=== PATIENT | female | born 1960 | race Caucasian/White ===

== ENCOUNTER → 2020-05-25 16:05 | Outpatient (CLI) | payer BC, SELFPAY ==
--- NOTE | ~2020-05-25 | MR_ITS ---
EXAMINATION: MR knee RT wo con DATE: 05/25/2020 17:00 INDICATION: Right knee pain. TECHNIQUE: Magnetic resonance imaging (MRI) of the right knee was performed without intravenous contr ast. Sequences included axial PD-weighted FS FSE, coronal PD-weighted FSE and PD-weighted FS FSE, sag ittal PD-weighted FSE, and sagittal T2-weighted FS FSE. COMPARISON: Right knee MRI 08/10/2015 FINDINGS: Medial compartment: Medial meniscus is normal. There is shallow partial-thickness cartilage loss of tibial condyle. There is shallow partial-thickness cartilage loss of femoral condyle, worst at the central articular surfa ce. Marginal osteophytes are noted. Lateral compartment: Lateral meniscus is normal. There is deep partial thickness cartilage loss of tibial condyle involvin g the posterior articular surface. Marginal osteophytes are noted. Patellofemoral compartment: There is full-thickness cartilage loss involving patellar medial facet and median ridge with cortical irregularity. There is deep partial thickness cartilage loss of patellar lateral facet. There is ful l-thickness cartilage loss of medial trochlea with mild subchondral edema-like marrow signal intensit y. There is partial-thickness cartilage loss of lateral trochlea. Marginal osteophytes are noted. Ligaments and tendons: The anterior and posterior cruciate ligaments are normal. There are changes of prior sprain of medial collateral ligament characterized increased signal intensity. There are changes of prior sprain of f ibular collateral ligament characterized by thickening and increased signal intensity proximally. The patellar tendon is normal. Fluid: There is a small knee joint effusion. There is a moderate-sized Alvarado's cyst. There is mild superfici al infrapatellar bursitis. IMPRESSION: 1. Severe chondrosis of patellofemoral compartment, moderate chondrosis of lateral compartment, and m ild chondrosis of medial compartment. 2. Small knee joint effusion. 3. Moderate-sized Alvarado's cyst. Reviewed, dictated and finalized at location A. IMPRESSION: 1. Severe chondrosis of patellofemoral compartment, moderate chondrosis of late ral compartment, and mild chondrosis of medial compartment. 2. Small knee joint effusion. 3. Moderate-sized Alvarado's cyst.
== END ==
DX: M25.561 Pain in right knee (principal); M25.461 Effusion, right knee
CPT/HCPCS: 73721

== ENCOUNTER → 2020-08-01 16:20 | Outpatient (CLI) | payer BC, SELFPAY ==
--- NOTE | ~2020-08-01 | XR_ITS ---
XR hand RT min 3V, XR hand LT min 3V 08/01/2020 18:51 Indication: Bilateral hand pain Procedure: 4 views each hand Comparison: No prior studies for comparison. Findings: There is ulnar negative variance. There is moderate polyarticular osteoarthritis of the wri sts and hands, most advanced in the first CMC joints bilaterally. No acute fracture or traumatic андрей lignment. No erosive changes. No foreign bodies. Impression: 1: Moderate-severe polyarticular osteoarthritis of the bilateral hands and wrists. Reviewed, dictated and finalized at location A. TY CLERK Impression: 1: Moderate-severe polyarticular osteoarthritis of the bilateral hands and wris ts. Impression: 1: Moderate-severe polyarticular osteoarthritis of the bilateral hands and wris ts.
== END ==
PROVIDERS: PCP Internal Medicine; Visit Provider Internal Medicine
DX: E78.5 Hyperlipidemia, unspecified (principal); Z79.899 Other long term (current) drug therapy; M19.031 Primary osteoarthritis, right wrist; M19.032 Primary osteoarthritis, left wrist; M19.041 Primary osteoarthritis, right hand; M19.042 Primary osteoarthritis, left hand
CPT/HCPCS: 73130

== ENCOUNTER → 2020-08-16 11:04 | Outpatient (CLI) | payer BC, SELFPAY ==
--- NOTE | ~2020-08-16 | MM_ITS ---
EXAMINATION: MM screening [facility] BI w john HISTORY: Screening mammogram, family history of breast cancer in her sister. TECHNIQUE: Craniocaudal and mediolateral oblique 3-D tomosynthesis images were obtained and synthetic 2-D images were generated. CAD analysis was submitted and interpreted. COMPARISON: 07/24/2019, 07/16/2018, 06/26/2017, 06/01/2016 BREAST PARENCHYMAL COMPOSITION: There are scattered areas of fibroglandular density. FINDINGS: Scattered benign-appearing calcifications are present. Again noted is a stable intramammary lymph node in the outer right breast. There is no evidence of suspicious mass, calcification, or arc hitectural distortion to suggest malignancy in either breast. There has been no suspicious interval c hange. IMPRESSION: 1. No mammographic evidence of malignancy. 2. Recommend routine screening mammography in one year. BI-RADS Category 2: Benign finding(s). Reviewed, dictated and finalized at location A. ER
== END ==
PROVIDERS: PCP Internal Medicine; Visit Provider Obstetrics & Gynecology
DX: Z12.31 Encounter for screening mammogram for malignant neoplasm of breast (principal)
CPT/HCPCS: 77063; 77067

== ENCOUNTER → 2021-07-18 09:46 | Outpatient (CLI) | payer BC, SELFPAY ==
--- NOTE | ~2021-07-18 | MMUS_ITS ---
EXAMINATION: MM diagnostic [facility] BI w john, US breast LT limited HISTORY: Probable left breast abnormality. TECHNIQUE: Additional 3-D tomosynthesis images of the breasts were performed and synthetic 2-D images were generated. CAD analysis was submitted and interpreted. High resolution Limited left breast ultr asound was performed. COMPARISON: Comparison to multiple prior studies sequentially, with oldest reviewed study dated 05/13. BREAST PARENCHYMAL COMPOSITION: The breasts are heterogenously dense, which may obscure small masses. FINDINGS: MAMMOGRAPHIC FINDINGS: There are no new masses, calcifications or architectural distortion in either breast to suggest saeed cash. ULTRASOUND: Limited left breast ultrasound: Normal heterogeneous echotexture without focal solid or cystic mass. IMPRESSION: 1. No evidence for malignancy in either breast. 2. Routine yearly screening mammogram and regular clinical breast examination are recommended. BI-RADS Category 1: Negative Reviewed, dictated and finalized at location A. ON PICTURE COMMENTATOR IMPRESSION: 1. No evidence for malignancy in either breast. 2. Routine yearly screening mammogram and regular clinical breast examination a re recommended. BI-RADS Category 1: Negative
== END ==
PROVIDERS: Visit Provider Obstetrics & Gynecology
DX: N64.4 Mastodynia (principal)
CPT/HCPCS: 76642; 77062; 77066; G0279

== ENCOUNTER → 2022-07-19 08:48 | Outpatient (CLI) | payer BC, SELFPAY ==
--- NOTE | ~2022-07-19 | DEXA_ITS ---
Bone Density Report Name: HALLIE CHOPRA Age: 61 Sex: Female Ethnicity: White Date of : 1960 Indication: postmenopausal; screening for osteoporosis; height loss; hysterectomy; Referring Provider: TRACY, TRISTIN Study: Bone densitometry was performed. Exam Date: July 19, 2022 Accession number: [id number] Bone Density: Region BMD T-score Z-score Classification AP Spine (L1, L2, L3) 0.868 -1.4 0.2 Osteopenia World Health Organization criteria for BMD impression classify patients as: Normal (T-score at or above -1.0), Osteopenia (T-score between -1.0 and -2.5), or Osteoporosis (T-score at or below -2.5). Previous Exams: Region Exam Age BMD T-score BMD Change BMD Change Date g/cm2 vs Baseline vs Previous AP Spine(L1, L2, L3) 07/19/2022 61 0.868 -1.4 -0.166* -0.075* 07/31/2018 57 0.944 -0.7 -0.091* -0.091* 12/06/2010 50 1.035 0.2 *Denotes significance at 95% confidence level, LSC for AP Spine = 0.022 g/cm2 Clinical Information Provided by Patient: Has used the following medications: Vitamin D, Calcium, MTV Has the following medical conditions: Hysterectomy Patient maximum height was 67.75 Menopause Age: 50 Drinks caffeinated beverages Onset of menses at age 14 Number of children 2 Impression: The patient has low bone mass, based on the Total Spine T-score. The BMD for the AP Spine(L1, L2, L3) decreased, changing by -0.075 since the last DXA exam. Discussion: BONE DENSITY IS LOW AT ONE OR MORE SKELETAL SITES. This patient's lowest T-score is low at one or more skeletal sites. It meets the World Health Organization's (WHO) criteria for ?low bone mass? (T-score between -1.0 and -2.5). The patient's 10-year risk of fracture as calculated by FRAX is less than the threshold where pharmacological therapy is recommended by the National Osteoporosis Foundation (NOF). However, all treatment decisions require clinical judgment and consideration of individual patient factors, including patient preferences, comorbidities, previous drug use, risk factors not captured in the FRAX model (e.g., frailty, falls, vitamin D deficiency, increased bone turnover, interval significant decline in bone density) and possible under or overestimation of fracture risk by FRAX. The patient should follow a healthful lifestyle (good nutrition with adequate calcium and vitamin D, and appropriate weight-bearing exercise). Follow-Up: Consider repeating this study in 2 years to reassess this patient's status, or sooner if there is some new clinical indication. Reported by: [facility] on 07/19/2022 9:48:00 AM. Reviewed, dictated and finalized at location APriti FOLEY
--- NOTE | ~2022-07-19 | MMUS_ITS ---
EXAMINATION: MM diagnostic [facility] BI w john, US breast LT limited HISTORY: Periareolar pain of the left breast TECHNIQUE: Craniocaudal, mediolateral, and mediolateral oblique 3-D tomosynthesis images of the nolvia ts were performed and synthetic 2-D images were generated. CAD analysis was submitted and interpreted . High resolution limited left breast ultrasound was performed. COMPARISON: 07/18/2021, 08/16/2020, 07/24/2019, 07/16/2018 BREAST PARENCHYMAL COMPOSITION: There are scattered areas of fibroglandular density. FINDINGS: MAMMOGRAPHIC FINDINGS: No suspicious mass, calcification, or architectural distortion are identified in either breast to sug gest malignancy. There has been no suspicious interval change. No mammographic correlate is identifie d for the patient's reported left breast pain. A stable intramammary lymph node is noted in the right breast. ULTRASOUND: There is no evidence of focal abnormal solid or cystic mass in the vicinity of the patient's reported left breast pain. IMPRESSION: 1. No specific mammographic or sonographic correlate is identified for the patient's reported left br east pain. Further evaluation at this time should be based on clinical assessment. Continued follow-u p physical examination is recommended. 2. Recommend routine screening mammography in one year. BI-RADS Category 2: Benign finding(s). Reviewed, dictated and finalized at location A. GER E COMMERCE IMPRESSION: 1. No specific mammographic or sonographic correlate is identified for the yakov ent's reported left breast pain. Further evaluation at this time should be base d on clinical assessment. Continued follow-up physical examination is recommend ed. 2. Recommend routine screening mammography in one year. BI-RADS Category 2: Benign finding(s).
== END ==
PROVIDERS: PCP Internal Medicine; Visit Provider Nurse Practitioner
DX: N64.4 Mastodynia (principal); Z78.0 Asymptomatic menopausal state
CPT/HCPCS: 76642; 77062; 77066; 77080; G0279

== ENCOUNTER → 2023-03-06 12:07 | Outpatient (CLI) | payer BC, SELFPAY ==
--- NOTE | ~2023-03-06 | XR_ITS ---
Right Shoulder Technique: AP and axillary views were obtained. Clinical History: Pain Findings: No fracture or dislocation is seen. Osseous alignment is anatomic. Small inferomedial humer al head osteophyte present. There is glenohumeral joint space narrowing. AC joint is intact. Soft tis sues are unremarkable. Impression: Moderate degenerative change of the glenohumeral joint. Reviewed, dictated and finalized at location . Impression: Moderate degenerative change of the glenohumeral joint.
== END ==
PROVIDERS: PCP Nurse Practitioner Family; Visit Provider Nurse Practitioner Family
DX: M19.011 Primary osteoarthritis, right shoulder (principal)
CPT/HCPCS: 73030

== ENCOUNTER → 2023-10-09 13:16 | Outpatient (CLI) | payer BC, SELFPAY ==
--- NOTE | ~2023-10-09 | MM_ITS ---
EXAMINATION: MM screening [facility] BI w john HISTORY: Screening TECHNIQUE: Craniocaudal and mediolateral oblique 3-D tomosynthesis images were obtained and synthetic 2-D images were generated. CAD analysis was submitted and interpreted. COMPARISON: Comparison to multiple prior studies sequentially, with oldest reviewed study dated 06/12. BREAST PARENCHYMAL COMPOSITION: Not dense: There are scattered areas of fibroglandular density. FINDINGS: There is no evidence of suspicious mass, calcification, or architectural distortion to sugg est malignancy in either breast. There has been no suspicious interval change. IMPRESSION: 1. No mammographic evidence of malignancy. 2. Recommend routine screening mammography in one year. BI-RADS Category 1: Negative Reviewed, dictated and finalized at location A. ESS WORKER
== END ==
PROVIDERS: PCP Nurse Practitioner; Visit Provider Nurse Practitioner
DX: Z12.31 Encounter for screening mammogram for malignant neoplasm of breast (principal)
CPT/HCPCS: 77063; 77067

== ENCOUNTER 2024-06-08 16:53 | Emergency (ER) | payer BC, SELFPAY ==
[2024-06-08 17:30] VITALS: BP 156/85; PULSE 71; RESP 18; TEMP 36.3; O2SAT 100
[2024-06-08 17:55] LABS: EDUAAPPEAR Clear; EDUABILI Negative (Negative); EDUABLOOD Negative (Negative); EDUACOLOR1 Light/Pale; EDUAGLUCOSE Negative (Negative); EDUAKETONE Negative (Negative); EDUALEUKO Negative (Negative); EDUANITRATE Negative (Negative); EDUAPH 6.5; EDUAPROTEIN Negative (Negative); EDUAUROBILI 0.2
--- NOTE | 2024-06-08 18:33 | ED_ITS ---
HPI - Female Genitourinary General Chief complaint: Urogenital-Female Stated complaint: Possible UTI Time Seen by Provider: 06/08/24 18:11 Source: patient and RN notes reviewed Mode of arrival: ambulatory Limitations: no limitations History of Present Illness HPI Narrative: Patient presents today with a one-week history of, ?lower abdominal pulling? that has been worse over the past 2 days with some mild dysuria and urinary frequency. She continues to eat and drink well. Denies fever, nausea or vomiting. She is going out of town tomorrow and wanted to make sure she did not have a UTI. States she has had symptoms similar to this in the past and tested negative for UTI. Her doctor told her to take some azo and symptoms subsequently resolved. Related Data Home Medications Medication Instructions Recorded Confirmed cetirizine 10 mg capsule (Zyrtec) 10 mg PO DAILY 07/22/19 06/08/24 calcium 300 mg-D3 20 mcg-magnesium 1 tablet PO DAILY 03/14/21 06/08/24 25 mg-coppr 0.5 [id number] tablet (Caltrate-D3 Plus Minerals) multivitamin (Daily Multi-Vitamin 1 tablet PO DAILY 03/14/21 06/08/24 tablet) vitamin B complex-folic acid 1 1 tablet PO DAILY 08/29/22 06/08/24 mg-vit C 100 mg-biotin 300 mcg tablet Allergies Allergy/AdvReac Type Severity Reaction Status Date / Time No Known Allergies Allergy Verified 06/08/24 17:56 Review of Systems Review of Systems: CONSTITUTIONAL: Denies body aches, fever, chills, or sweats. EYES: Denies visual changes, redness, or discharge. ENT: Denies rhinorrhea, congestion, sore throat, or otalgia. CARDIOVASCULAR: Denies chest pain, palpitations, or edema. RESPIRATORY: Denies cough or dyspnea. GASTROINTESTINAL: Denies abdominal pain, nausea, vomiting, or diarrhea. GENITOURINARY: + dysuria, frequency, lower abdominal discomfort SKIN: Denies rash, itching, or wounds. MUSCULOSKELETAL: Denies back pain, joint pain, or myalgia. NEUROLOGIC: Denies headache, numbness, tingling, or weakness. PSYCH: Denies depression or anxiety. [facility] Past Medical History Medical History Hypothyroidism, unspecified Osteoarthritis Surgical History Surgical History H/O: hysterectomy 12/2014 History of hip surgery Right 2020 Left 2016 Family History Family History Father Acute myocardial infarction, Onset Age: 71 Hypertension Family history of elevated blood lipids Mother Family history of obesity Hypertension Cerebrovascular accident Family history of diabetes mellitus in first degree relative Acute myocardial infarction, Onset Age: 60 Sibling Patient's sister is in good health Patient's brother is in good health Other Diabetes mellitus Family history of allergic disorder Family history of cardiovascular disease Family history of malignant neoplasm of male breast Social History Social History Smoking packs per day: 0.5 Smoking cigarettes per day: 10.0 Years smoked: 9 Smoking pack-years: 4.50 Smoking status: Former smoker Tobacco type: cigarettes Second hand tobacco smoke exposure: Yes Smoking end date: 08/12/89 Alcohol intake: current Drinks per week: 12 Substance use: never Substance use type: does not use Do You Feel Safe in your Home?: Yes Lack of Transportation: No Lack of Food: Never True Current Housing: I Have Housing Concerned About Future Housing: No Difficulty Paying Gas/Electric Bills: No Difficulty Paying for Meds: No Currently Unemployed: No Education: High School Diploma/GED Difficulty w/ Childcare or Family Care: No Living arrangements: with family Occupation/Education: retired Gender identity (if verbalized by the patient): Female Sexual Orientation (if Verbalized by the Patient): Straight or Heterosexual Spiritual care concerns: No Agree to blood products: Yes Comments At time of signature, I have reviewed and agree with nursing past medical, surgical, social and family history unless otherwise noted. Please see nursing chart for further information. There is no relevant family history pertinent to the presenting complaint Exam Narrative: GENERAL: Well-appearing, well-nourished, and in no acute distress. HEAD: Normocephalic, atraumatic. EYES: EOMI. No redness or drainage. Conjunctivae normal. ENT: Mucous membranes pink and moist. NECK: Normal AROM. CHEST: No respiratory distress. Clear to auscultation. HEART: Regular rate and rhythm. No murmur appreciated. ABDOMEN: Soft, nontender, nondistended, normal active bowel sounds. EXTREMITIES: Normal range of motion. No edema. SKIN: Warm, dry, no rash. Capillary refill normal. NEURO: No focal deficits. Alert and oriented x3. Gait steady. PSYCH: Normal affect. No signs of depression or anxiety. Course Course Level of Care: Express Care Visit Vital Signs Vital signs: Vital Signs Temperature 97.3 F L 06/08/24 17:30 Pulse Rate 71 06/08/24 17:30 Respiratory Rate 18 06/08/24 17:30 Blood Pressure 156/85 H 06/08/24 17:30 Pulse Oximetry 100 06/08/24 17:30 Oxygen Delivery Room Air 06/08/24 17:30 Temperature 97.3 F L 06/08/24 17:30 Pulse Rate 71 06/08/24 17:30 Respiratory Rate 18 06/08/24 17:30 Blood Pressure 156/85 H 06/08/24 17:30 Pulse Oximetry 100 06/08/24 17:30 Oxygen Delivery Room Air 06/08/24 17:30 Reviewed MDM - Female Genitourinary MDM Narrative Medical decision making narrative: With urinalysis is not consistent with UTI. Culture pending. Discussed [id number]-[id number] medication use. No prescription medications indicated at this time. Anticipatory guidance given. ED precautions given. Differential Diagnosis Differential diagnosis: Likely urinary tract infection, vaginitis and cystitis Lab Data Attestation: I reviewed the patient's lab results. Labs: Lab Results 06/08/24 Range/Units 17:52 POC Urine Color Light/pale POC Urine Clarity Clear POC Urine pH 6.5 POC Ur Specif [place] 1.010 POC Urine Protein Negative (Negative) POC Ur Glucose (UA) Negative (Negative) POC Urine Ketones Negative (Negative) POC Urine Blood Negative (Negative) POC Urine Nitrite Negative (Negative) POC Urine Bilirubin Negative (Negative) POC Urine Urobilinogen 0.2 POC U Leukocyte Esteras Negative (Negative) Critical Care Time Critical Care Time Critical Care Time: No Discharge Plan Discharge Clinical Impression: Dysuria, Frequency of urination Patient Disposition: Home, Self-Care Condition: Stable Additional Instructions: Your urine test is negative for infection today. You will be notified by phone if your culture comes back positive for infection, and appropriate antibiotics will be called in for you at that time. Drink plenty of water. If symptoms persist, please follow-up with your PCP. If symptoms worsen to include fever, back pain, sweats or chills, nausea or vomiting, please go to the nearest emergency room. Your blood pressure was elevated above 120/80 today at Urgent Care. This puts you above the threshold for follow up. Please schedule a followup visit with your personal physician as soon as possible, for further evaluation and treatment. Even blood pressure exceeding 120/80 may indicate pre-hypertension. Prescriptions: No Action Zyrtec 10 mg capsule 10 mg PO DAILY cholecalciferol (vitamin D3) 25 mcg (1,000 unit) tablet 25 mcg PO DAILY Qty: 30 0RF multivitamin [Daily Multi-Vitamin] Tablet 1 tablet PO DAILY Caltrate-D3 Plus Minerals 300 mg-800 unit -25 mg-0.5 mg tablet 1 tablet PO DAILY vit B complx-folic ac-C-biotin 1 mg-100 mg- 300 mcg tablet 1 tablet PO DAILY atorvastatin 40 mg tablet 40 mg PO DAILY Qty: 90 1RF bupropion HCl 300 mg tablet extended release 24 hr 300 mg PO QAM Qty: 90 1RF levothyroxine [Levoxyl] 88 mcg tablet 88 mcg PO DAILY Qty: 90 1RF alprazolam [Xanax] 0.5 mg tablet 0.5 mg PO DAILY PRN (Reason: anxiety) Qty: 90 0RF Follow-up/Referrals: Kathrin Carrion APRN [Primary Care Provider] - Time of Disposition: 18:19
== END 2024-06-08 18:21 | disposition home or self-care (01) ==
PROVIDERS: Emergency Provider Nurse Practitioner; PCP Nurse Practitioner Family
DX: R30.0 Dysuria (principal); R35.0 Frequency of micturition; Z87.891 Personal history of nicotine dependence; E03.9 Hypothyroidism, unspecified; M19.90 Unspecified osteoarthritis, unspecified site
CPT/HCPCS: 81003; 99212; G0463

== ENCOUNTER 2024-09-15 11:48 | Outpatient (CLI) | payer BC, SELFPAY ==
--- NOTE | ~2024-09-15 | DEXA_ITS ---
Bone Density Report Name: HALLIE CHOPRA Age: 64 Sex: Female Ethnicity: White Date of : 1960 Indication: postmenopausal; screening for osteoporosis; prior fracture; hysterectomy; Referring Provider: KASSY, TYLER Study: Bone densitometry was performed. Exam Date: September 15, 2024 Accession number: [id number] Bone Density: Region BMD T-score Z-score Classification AP Spine(L1-L4) 0.917 -1.2 0.5 Osteopenia World Health Organization criteria for BMD impression classify patients as: Normal (T-score at or above -1.0), Osteopenia (T-score between -1.0 and -2.5), or Osteoporosis (T-score at or below -2.5). Clinical Information Provided by Patient: Have had a previous hip or vertebral fracture Has had a low trauma fracture Has the following medical conditions: Hysterectomy Patient maximum height was 67.5 Menopause Age: 54 No regular weight bearing exercise Drinks caffeinated beverages Onset of menses at age 14 Number of children 2 Impression: The patient has low bone mass, based on the Total Spine T-score. The patient has risk factors, including: previous fracture. Discussion: INCREASED RISK OF FRACTURE DUE TO HISTORY OF FRACTURE. The patient's previous fracture puts the patient at high risk of a future fracture. In untreated patients, the risk of osteoporotic fracture increases approximately two-fold for each 1.0 SD decrease in T-score. Low bone density is not the only risk factor for fracture; also consider factors such as patient's age, frailty or poor health, risk of falling, risk of injury, previous osteoporotic fracture, family history of osteoporosis, cigarette smoking, low body weight, etc. Not everyone with a low trauma fracture has osteoporosis; osteomalacia and other metabolic bone disorders should also be considered. Patients who have osteoporosis should be evaluated for specific diseases and conditions (secondary causes) that may cause or contribute to bone loss and fracture risk. National Osteoporosis Foundation (NOF) recommends pharmacologic intervention for patients with a prior hip or vertebral fracture regardless of BMD T-score. The patient should follow a healthful lifestyle (good nutrition with adequate calcium and vitamin D, and appropriate weight-bearing exercise). Follow-Up: Consider a repeat BMD and Vertebral Fracture Assessment (VFA) exam in 2 years or sooner if medically necessary, to reassess this patient's status. Reported by: JEFF on 09/15/2024 1:16:00 PM. Reviewed, dictated and finalized at location [facility] FOLEY
--- OUTSIDE RECORDS SUMMARY | 2024-09-15 12:12 | XMS_ITS | Clinical Summary ---
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
--- OUTSIDE RECORDS SUMMARY | 2024-09-15 12:13 | XMS_ITS | Referral Summary ---
Author Organization [facility] [address] Address [address] [place] [address] Phone Care Team Providers Care Dieing Out Machine Operator Name Role Phone Naveed Marion DO Primary Care Provider [phone] Allergies No known active allergies Medications buPROPion XL (WELLBUTRIN XL) 300 mg 24 hr tablet take 1 tablet by oral route every day 0 0 05/17/2016 Active levothyroxine (SYNTHROID, LEVOTHROID) 88 mcg tablet take 1 tablet by oral route every day 0 0 05/17/2016 Active b complex vitamins (B COMPLEX 1) tablet Take 1 tablet by mouth daily Active atorvastatin (LIPITOR) 20 mg tablet Take 1 tablet (20 mg total) by mouth nightly Active calcium carbonate-vitam in D3 (CALTRATE 600 + D) 1500 mg (600 mg elemental) -400 units per tablet Take 1 tablet by mouth daily Active cyanocobalamin (Vitamin B-12) 1,000 mcg tabletIndicatio ns:Prevention of Vitamin B12 Deficiency Take 1 tablet (1,000 mcg total) by mouth daily Active ALPRAZolam (XANAX) 0.5 mg tablet Take 1 tablet (0.5 mg total) by mouth nightly as needed for anxiety Active multivitamin capsule Take 1 capsule by mouth daily Active ascorbic acid/collagen hydr (COLLAGEN PLUS VITAMIN C ORAL) Take 1 Scoop by mouth daily Active albuterol HFA (PROVENTIL HFA,VENTOLIN HFA,PROAIR HFA) 90 mcg/actuation inhaler Inhale 2 puffs every 6 (six) hours as needed for wheezing Active cetirizine (ZyrTEC) 10 mg tablet Take 1 tablet (10 mg total) by mouth daily Active acetaminophen 500 mg capsuleIndicati ons:Pain Take 1 capsule (500 mg total) by mouth every 6 (six) hours 0 04/05/2021 Active Active Problems Problem Noted Date Diagnosed Date Rotator cuff tear arthropathy of right shoulder 06/01/2024 Right shoulder pain 06/01/2024 Primary osteoarthritis of right hip 02/06/2021 Overview (02/06/2021): Added automatically from request for surgery 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 therapy 1 09/16/2015 Arthralgia of hip 06/12/2016 Osteoarthritis Migraine Hypothyroidism Hypertension Hyperlipidemia GERD (gastroesophageal reflux disease) Depression Anxiety Resolved Problems Problem Noted Date Diagnosed Date Resolved Date Osteoarthritis of right hip 04/03/2021 Immunizations Name Administration Dates Next Due Influenza, Quadrivalent, Amanda l Culture-based MDCK, Preservative Free, Antibiotic Free, Intramuscular 05/20/2020,05/20/2019,05/01/2018,05/21 Influenza, Quadrivalent, Spl it, Preservative Free, Intramuscular 04/26/2016,06/14/2015 Influenza, Trivalent, IM (MDV) 05/04/2013 Pfizer SARS-CoV-2 Monovalent Vaccination (12+ Yrs) PURPLE 12/01/2020,11/10/2020 ZOSTER Recombinant 05/01/2018,01/13/2018 Social History Tobacco Use Types Packs/Day Years Used Date Smoking Tobacco: Former Cigarettes 0.3 12.5 0 10/11/1975 - 04/12/1988 Smokeless Tobacco: Never Tobacco Cessation:Counseling Given: Not Answered Comments:I had quit in 1979 but began again in 1986. I was never a big smoker. Alcohol Use Standard Drinks/Week Comments Yes 0 (1 standard drink = 0.6 oz pur e alcohol) AUDIT-C Answer Date Recorded Q1: How often do you have a drink containing alc ohol? 2-4 times a month 04/04/2021 Q2: How many drinks containi ng alcohol do you have on a typical day when you are drinking? 3 or 4 04/04/2021 Q3: How often do you have si x or more drinks on one occasion? 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 Not on file Not on file Last Filed Vital Signs Vital Sign Reading Time Taken Comments Blood Pressure 119/74 04/05/2021 12:03 PM CDT Pulse 69 04/05/2021 12:03 PM CDT Temperature 36.6 ??C (97.9 ??F) 04/05/2021 12:03 PM C DT Respiratory Rate 16 04/05/2021 12:03 PM CDT Oxygen Saturation 100% 04/05/2021 12:03 PM CDT Inhaled Oxygen Concentration - - Weight 74.8 kg (165 lb) 06/01/2024 2:22 PM CDT Height 170.2 cm (5' 7 ) 06/01/2024 2:22 PM CDT Body Mass Index 25.84 06/01/2024 2:22 PM CDT Plan of Treatment Not on file Medical Devices Implanted Type Area Report Checker Device Identifier Shelf Expiration Date Model / Serial / Lot Stern & Nephew/Richco/ Ortho [id number] 52mm 3 Hole Hip Standard Shell Acetabular Poly - [id number] Implanted:Qty: 1 on 04/04/2021 by Donta Salas MD at [facility] Right: Hip Stern [employer] Nephew/Richco/Or tho [id number] 02/27/2031 [id number] / / [id number] Stern [employer] Nephew/Richco/ Ortho [id number] Reflection 6.5mm 25mm Hip Acetabular Cancellous [place] Full - [id number] Implanted:Qty: 1 on 04/04/2021 by Donta Salas MD at [facility] Right: Hip Stern [employer] Nephew/Richco/Or tho [id number] 02/18/2029 [id number] / / [id number] Stern [employer] Nephew/Richco/ Ortho [id number] R3 52mm 36mm Flexible Locking Tab Hip 0d Liner Acetabular Xlpe - [id number] Implanted:Qty: 1 on 04/04/2021 by Donta Salas MD at [facility] Right: Hip Stern [employer] Nephew/Richco/Or tho 10/25/2030 [id number] / / [id number] Stern & Nephew/Richco/ Ortho [id number] Polarstem Collar Cementless Hip 1 Standard Stem Femoral Titanium - [id number] Implanted:Qty: 1 on 04/04/2021 by Donta Salas MD at [facility] Right: Hip Stern [employer] Nephew/Richco/Or tho 10/06/2027 [id number] / / [id number] Stern [employer] Nephew/Richco/ Ortho [id number] 32mm Hip +8mm 07/25 Large Head Femoral Biolox Delta - [id number] Implanted:Qty: 1 on 04/04/2021 by Donta Salas MD at [facility] Right: Hip Stern [employer] Nephew/Richco/Or tho 01/24/2031 [id number] / / [id number] Insurance [facility] CHOICE [place]PO [place] Advance Directives For more information, please contact: [phone] Documents on File Type Date Recorded Patient Strapping Machine Operator Expl anation Power of Lump Maker 04/10/2021 8:50 AM Power of Lump Maker 04/04/2021 6:12 AM * Full Code (Latest Code Status on File) Date Activated Date Inactivated Comments 04/04/2021 4:57 PM 04/05/2021 5:28 PM Care Teams Dieing Out Machine Operator Relationship Specialty Start Date End Date Naveed Marion DO PCP - General Internal Medicine 02/06/21
--- OUTSIDE RECORDS SUMMARY | 2024-09-15 12:13 | XMS_ITS | Clinical Summary ---
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 therapy 1 09/16/2015 [...] (12+ Yrs) PURPLE 12/01/2020,11/10/2020 ZOSTER Recombinant 05/01/2018,01/13/2018 Surgical History Surgery Date Site/Laterality Comments TONSILLECTOMY 08/12/1978 - 1979 TUBAL LIGATION 08/12/2000 - 2001 BUNIONECTOMY 08/12/2005 - 2006 COMBINED HYSTEROSCOPY DIAGNOSTIC / D&C 08/12/2007 - 2008 for menorrhagia TOTAL ABDOMINAL HYSTERECTOMY 08/12/2014 - 2015 with BS, for menorrhagia and fibroids TOTAL HIP ARTHROPLASTY 08/12/2015 - 2016 Left JOINT REPLACEMENT 2015 & 2020 Medical History Medical History Date Comments Osteoarthritis Hypothyroidism Depression Hyperlipidemia Hypertension Anxiety Migraine GERD (gastroesophageal reflux disease) Osteoarthritis of right hip Family History Medical History Relation Name Comments Obesity Brother Diaz Atrial fibrillation Father Shayne Heart attack Father Shayne Breast cancer Father's Sister Heart attack Maternal Grandfather Shubham Diabetes Mother Mylene Heart attack Mother Mylene Heart disease Mother Mylene COD Hypertension Mother Mylene Obesity Mother Mylene Stroke Mother Mylene Vision loss Mother Mylene Asthma Sister 1 Liv Breast cancer Sister 1 Liv Cancer Sister 2 Matilda Relation Name Status Comments Brother Diaz Bella Father's Sister Maternal Grandfather Shubham Mother Mylene Sister 1 Liv Sister 2 Matilda Social History Tobacco Use Types Packs/Day Years [...] on file Legal 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 Gender Identity Female 05/12/2020 2:15 PM CDT Sexual Orientation Straight 05/12/2020 2: 15 PM CDT 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 Not on file Not on file Obstetrics History Para Term AB IAB SAB Ectopic Multiple Livin g Live Births 2 2 2 0 0 0 0 0 0 2 2 Date Outcome GA Total Labor Labor/2nd/3rd Weight Sex Type Anes PTL Marianela A1 A5 Name Clin Term Term Last Filed Vital Signs Vital Sign Reading [...] 06/01/2024 2:22 PM CDT Plan of Treatment Health Maintenance Due Date Last Done Comments Breast Cancer Screening-Mammogram 1960 Colon Cancer Screening-Colonoscopy 1960 Depression Screening 1960 Hepatitis C Screening 1960 DTaP/Tdap/Td Vaccine (1 - Tdap) 1971 Hepatitis B Screening 1978 Regular Well Visit/Exam 18-64 07/29/2019 07/29/2018, 07/22/2017 Covid-19 Vaccine ( season) 2024 12/01/2020, 11/10/2020 Zoster Vaccine Completed 05/01/2018, 01/13/2018 Influenza Vaccine Completed 05/29/2024, , 05/20/2019, Additional history exists Pneumococcal vaccine <65 Aged Out No longer eligible based on patient's age to complete this topic Medical Devices Implanted Type Area Growth Media Mixer Mushroom Device Identifier Shelf Expiration Date Model / Serial / Lot Stern & Nephew/Richco/ Ortho [id number] 52mm 3 Hole Hip Standard Shell Acetabular Poly - [id number] Implanted:Qty: 1 on 04/04/2021 by Donta Salas MD at [facility] Right: Hip [employer] Nephew/Richco/Or tho [id number] 02/27/2031 [id number] / / [id number] Stern [employer] Nephew/Richco/ Ortho [id number] Reflection 6.5mm 25mm Hip Acetabular Cancellous [place] Full - [id number] Implanted:Qty: 1 on 04/04/2021 by Donta Salas MD at [facility] Right: Hip [employer] Nephew/Richco/Or tho [id number] 02/18/2029 [id number] / / [id number] Stern [employer] Nephew/Richco/ Ortho [id number] R3 52mm 36mm Flexible Locking Tab Hip 0d Liner Acetabular Xlpe - [id number] Implanted:Qty: 1 on 04/04/2021 by Donta Salas MD at [facility] Right: Hip Stern [employer] Nephew/Richco/Or tho 10/25/2030 [id number] / / [id number] Stern & Nephew/Richco/ Ortho [id number] Polarstem Collar Cementless Hip 1 Standard Stem Femoral Titanium - [id number] Implanted:Qty: 1 on 04/04/2021 by Donta Salas MD at [facility] Right: Hip Stern [employer] Nephew/Richco/Or tho 10/06/2027 [id number] / / [id number] Stern & Nephew/Richco/ Ortho [id number] 32mm Hip +8mm 07/25 Large Head Femoral Biolox Delta - [id number] Implanted:Qty: 1 on 04/04/2021 by Donta Salas MD at [facility] Right: Hip Stern & Nephew/Richco/Or tho 01/24/2031 [id number] / / [id number] Insurance [facility] CHOICE [facility] [place]PO [place] CHO[place] Advance Directives For more information, please contact: [phone] Documents on File Type Date Recorded Patient Mannequin Sander And Finisher Expl anation Power of Rubber Thread Spooler 04/10/2021 8:50 AM Power of Rubber Thread Spooler 04/04/2021 6:12 AM * Full Code (Latest Code Status on File) Date Activated Date Inactivated Comments 04/04/2021 4:57 PM 04/05/2021 5:28 PM Care Teams Starch Crab Relationship Specialty Start Date End Date Naveed Marion DO PCP - General Internal Medicine 02/06/21
--- OUTSIDE RECORDS SUMMARY | 2024-09-15 12:13 | XMS_ITS | Clinical Summary ---
Author Organization [facility] Address [address] [place] [address]. [place], [place] [id number] [place] [address] Care Team Providers Care Service Center Manager Name Role Phone Unavailable Primary Care Provider Unavailabl e Social History Tobacco Use Types Packs/Day Years Used Date Smoking Tobacco: Never Assessed Comments Unknown Sex and Gender Information Value Date Recorded Sex Assigned at Not on file Legal Sex Female 7:11 PM CDT Gender Identity Not on file Sexual Orientation Not on file Plan of Treatment Health Maintenance Due Date Last Done Comments Cervical Cancer Screening Pa p Smear (Age 30 to 64) Every 3 Years 1960 Colorectal Cancer Screening Colonoscopy (10 Years) 1960 Annual Physical 1963 Hepatitis C 1978 DTaP, Tdap and Td Vaccines ( 1 - Tdap) 1979 Cervical Cancer Screening Pa p with HPV Testing (Age 30 to 64) Every 5 Years 1990 Cervical Cancer Screening with HPV 1990 Mammogram Screening 2000 Zoster Vaccines (1 of 2) 2010 COVID-19 Vaccine (2023-2 5 season) 2024 Influenza Adult (#1) 2024 RSV Immunization or 60+ Years (1 - 1-dose 75+ series) 2035 Meningococcal B Vaccine Aged Out No l onger eligible based on patient's age to complete this topic Meningococcal Vaccine Aged Out No priscilla miles eligible based on patient's age to complete this topic Pneumococcal Vaccine: Pediat rics (0 to 5 Years) and At-Risk Patients (6 to 64 Years) Aged Out No longer eligible b ased on patient's age to complete this topic RSV Immunizations Under 20 Months Aged Out No longer eligible based on patient's age to complete this topic
== END 2024-09-15 11:49 | disposition home or self-care (01) ==
PROVIDERS: PCP Nurse Practitioner Family; Visit Provider Nurse Practitioner Women's Health
DX: M85.88 Other specified disorders of bone density and structure, other site (principal); Z78.0 Asymptomatic menopausal state; Z13.820 Encounter for screening for osteoporosis
CPT/HCPCS: 77080

== ENCOUNTER 2024-10-10 09:47 | Outpatient (CLI) | payer BC, SELFPAY | END 2024-10-10 09:48 | disposition home or self-care (01) | LOC: MICIMG 09:48 | PROVIDERS: PCP Nurse Practitioner Family; Visit Provider Nurse Practitioner Women's Health | DX: Z12.31 Encounter for screening mammogram for malignant neoplasm of breast (principal); Z80.3 Family history of malignant neoplasm of breast | CPT/HCPCS: 77063; 77067 ==

== ENCOUNTER 2024-12-04 09:45 | Outpatient (CLI) | payer BC, SELFPAY ==
--- OUTSIDE RECORDS SUMMARY | 2024-12-04 09:58 | XMS_ITS | Referral Summary ---
Author Organization [facility] [address] Address [address] [employer] [place] [address] Phone Care Team Providers Care Medical Technologist Microbiology Name Role Phone Naveed Marion DO Primary Care Provider [phone] Allergies No known active allergies Medications buPROPion [...] (02/06/2021): Added automatically from request for surgery [id number] shelter current use of anticoagulant therapy 1 09/16/2015 Arthralgia of hip 06/12/2016 Osteoarthritis Migraine Hypothyroidism Hypertension Hyperlipidemia GERD (gastroesophageal reflux disease) Depression Anxiety Resolved Problems Problem Noted Date Diagnosed Date Resolved Date Osteoarthritis of right hip 04/03/2021 Immunizations Immunization Administration Dates Next Due Influenza, Quadrivalent, Amanda [...] on file 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 Gender Identity Female 05/12/2020 2:15 PM CDT Sexual Orientation Straight 05/12/2020 2: 15 PM CDT 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 Not on file Not on file Last Filed Vital Signs Vital Sign Reading Time Taken Comments Blood Pressure 119/74 04/05/2021 12:03 PM CDT Pulse 69 04/05/2021 12:03 PM CDT Temperature 36.6 C (97.9 F) 04/05/2021 12:03 PM CDT Respiratory Rate 16 04/05/2021 12:03 PM CDT Oxygen Saturation 100% 04/05/2021 12:03 PM CDT Inhaled Oxygen Concentration - - Weight 74.8 kg (165 lb) 06/01/2024 2:22 PM CDT Height 170.2 cm (5' 7 ) 06/01/2024 2:22 PM CDT Body Mass Index 25.84 06/01/2024 2:22 PM CDT Plan of Treatment Not on file Medical Devices Implanted Type Area Electric Well Logging Operator Device Identifier Shelf Expiration Date Model / Serial / Lot Stern & Nephew/Richco/ Ortho [id number] [id number] 52mm 3 Hole Hip Standard Shell Acetabular Poly - [id number] Implanted:Qty: 1 on 04/04/2021 by Donta Salas MD at [facility] Right: Hip Stern [employer] Nephew/Richco/Or tho [id number] 02/27/2031 [id number] / / [id number] Stern [employer] Nephew/Richco/ Ortho [id number] Reflection 6.5mm 25mm Hip Acetabular Cancellous [place] Full - [id number] Implanted:Qty: 1 on 04/04/2021 by Donta Salas MD at [facility] Right: Hip Stern [employer] Nephew/Richco/Or tho [id number] 02/18/2029 [id number] / / [id number] Stern [employer] Nephew/Richco/ Ortho [id number] R3 52mm 36mm Flexible Locking Tab Hip 0d Liner Acetabular Xlpe - [id number] Implanted:Qty: 1 on 04/04/2021 by Donta Salas MD at [facility] Right: Hip Stern [employer] Nephew/Richco/Or tho 10/25/2030 [id number] / / [id number] Stern [employer] Nephew/Richco/ Ortho [id number] Polarstem Collar Cementless Hip 1 Standard Stem Femoral Titanium - [id number] Implanted:Qty: 1 on 04/04/2021 by Donta Salas MD at [facility] Right: Hip Stern [employer] Nephew/Richco/Or tho 10/06/2027 [id number] / / [id number] Stern [employer] Nephew/Richco/ Ortho [id number] 32mm Hip +8mm 07/25 Large Head Femoral Biolox Delta - [id number] Implanted:Qty: 1 on 04/04/2021 by Donta Salas MD at [facility] Right: Hip Stern [employer] Nephew/Richco/Or tho 01/24/2031 [id number] / / [id number] Insurance [facility] BL CHOICE [place]PO [place] Advance Directives For more information, please contact: [phone] Documents on File Type Date Recorded Patient Examination Scorer Expl anation Power of Video Journalist 04/10/2021 8:50 AM Power of Video Journalist 04/04/2021 6:12 AM * Full Code (Latest Code Status on File) Date Activated Date Inactivated Comments 04/04/2021 4:57 PM 04/05/2021 5:28 PM Care Teams Medical Technologist Microbiology Relationship Specialty Start Date End Date Naveed Marion DO PCP - General Internal Medicine 02/06/21
--- OUTSIDE RECORDS SUMMARY | 2024-12-04 09:58 | XMS_ITS | Clinical Summary ---
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
--- OUTSIDE RECORDS SUMMARY | 2024-12-04 09:58 | XMS_ITS | Clinical Summary ---
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 Gender Identity Female 05/12/2020 2:15 PM CDT [...] this topic Medical Devices Implanted Type Area Sternman Device Identifier Shelf Expiration Date Model / Serial / Lot Stern & Nephew/Richco/ Ortho [id number] [id number] 52mm 3 Hole Hip Standard Shell Acetabular Poly - [id number] Implanted:Qty: 1 on 04/04/2021 by Donta Salas MD at [facility] Right: Hip Stern [employer] Nephew/Richco/Or tho [id number] 02/27/2031 [id number] / / [id number] Stern & Nephew/Richco/ Ortho [id number] Reflection 6.5mm 25mm Hip Acetabular Cancellous [place] Full - [id number] Implanted:Qty: 1 on 04/04/2021 by Donta Salas MD at [facility] Right: Hip Stern & Nephew/Richco/Or tho [id number] 02/18/2029 [id number] / / [id number] Stern & Nephew/Richco/ Ortho [id number] R3 52mm 36mm Flexible Locking Tab Hip 0d Liner Acetabular Xlpe - [id number] Implanted:Qty: 1 on 04/04/2021 by Donta Salas MD at [facility] Right: Hip Stern & Nephew/Richco/Or tho 10/25/2030 [id number] / / [id number] Stern & Nephew/Richco/ Ortho [id number] Polarstem Collar Cementless Hip 1 Standard Stem Femoral Titanium - [id number] Implanted:Qty: 1 on 04/04/2021 by Donta Salas MD at [facility] Right: Hip Stern & Nephew/Richco/Or tho 10/06/2027 [id number] / / [id number] Stern & Nephew/Richco/ Ortho [id number] 32mm Hip +8mm 07/25 Large Head Femoral Biolox Delta - [id number] Implanted:Qty: 1 on 04/04/2021 by Donta Salas MD at [facility] Right: Hip Stern & Nephew/Richco/Or tho 01/24/2031 [id number] / / [id number] Insurance [facility] [place] CHO[place]PO [place] Advance Directives For more information, please contact: [phone] Documents on File Type Date Recorded Patient High Lift Operator Expl anation Power of Inverform Machine Operator 04/10/2021 8:50 AM Power of Inverform Machine Operator 04/04/2021 6:12 AM * Full Code (Latest Code Status on File) Date Activated Date Inactivated Comments 04/04/2021 4:57 PM 04/05/2021 5:28 PM Care Teams Water Team Leader Relationship Specialty Start Date End Date Naveed Marion DO PCP - General Internal Medicine 02/06/21
== END 2024-12-04 09:46 | disposition home or self-care (01) ==
LOC: ANHCARD 09:47
PROVIDERS: PCP Nurse Practitioner; Visit Provider Nurse Practitioner Family
DX: R00.2 Palpitations (principal); R42 Dizziness and giddiness
CPT/HCPCS: 93242

== ENCOUNTER 2025-01-01 01:09 | Day surgery (SDC) | payer BC, SELFPAY ==
[2024-12-25 11:15] VITALS: BMI 24.5
--- OUTSIDE RECORDS SUMMARY | 2025-01-01 01:12 | XMS_ITS | Referral Summary ---
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 Gender Identity Female 05/12/2020 2:15 PM CDT [...] on file Medical Devices Implanted Type Area Shipwright Apprentice Device Identifier Shelf Expiration Date Model / Serial / Lot [employer]/ Ortho [id number] 52mm 3 Hole Hip Standard Shell Acetabular Poly - [id number] Implanted:Qty: 1 on 04/04/2021 by Donta Salas MD at [facility] Right: Hip [employer]/Or tho [id number] 02/27/2031 [id number] / / [id number] [employer]/ Ortho [id number] Reflection 6.5mm 25mm Hip Acetabular Cancellous Maxatawny Full - [id number] Implanted:Qty: 1 on 04/04/2021 by Donta Salas MD at [facility] Right: Hip [employer]/Or tho [id number] 02/18/2029 [id number] / / [id number] [employer]/ Ortho [id number] [id number] 52mm 36mm Flexible Locking Tab Hip 0d Liner Acetabular Xlpe - [id number] Implanted:Qty: 1 on 04/04/2021 by Donta Salas MD at [facility] Right: Hip [employer]/Or tho 10/25/2030 [id number] / / [id number] [employer]Rich[employer]/ Ortho [id number] Polarstem Collar Cementless Hip 1 Standard Stem Femoral Titanium - [id number] Implanted:Qty: 1 on 04/04/2021 by Donta Salas MD at [facility] Right: Hip [employer]/Or tho 10/06/2027 [id number] / / [id number] [employer]/ Ortho [id number] 32mm Hip +8mm 07/25 Large Head Femoral Biolox Delta - [id number] Implanted:Qty: 1 on 04/04/2021 by Donta Salas MD at [facility] Right: Hip [employer]/Or tho 01/24/2031 [id number] / / [id number] Insurance [facility] [place] Advance Directives For more information, please contact: [phone] Documents on File Type Date Recorded Patient Interface Engineer Expl anation Power of Business Management Professor 04/10/2021 8:50 AM Power of Business Management Professor 04/04/2021 6:12 AM * Full Code (Latest Code Status on File) Date Activated Date Inactivated Comments 04/04/2021 4:57 PM 04/05/2021 5:28 PM Care Teams Paragliding Instructor Relationship Specialty Start Date End Date Naveed Marion DO PCP - General Internal Medicine 02/06/21
--- OUTSIDE RECORDS SUMMARY | 2025-01-01 01:12 | XMS_ITS | Clinical Summary ---
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
--- OUTSIDE RECORDS SUMMARY | 2025-01-01 01:12 | XMS_ITS | Clinical Summary ---
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 Gender Identity Female 05/12/2020 2:15 PM CDT [...] this topic Medical Devices Implanted Type Area Spa Director Device Identifier Shelf Expiration Date Model / Serial / Lot [employer]Rich[employer]/ Ortho [id number] 52mm 3 Hole Hip Standard Shell Acetabular Poly - [id number] Implanted:Qty: 1 on 04/04/2021 by Donta Salas MD at [facility] Right: Hip [employer]/Or tho [id number] 02/27/2031 [id number] / / [id number] [employer]/ Ortho [id number] Reflection 6.5mm 25mm Hip Acetabular Cancellous Bear Full - [id number] Implanted:Qty: 1 on 04/04/2021 by Donta Salas MD at [facility] Right: Hip [employer]/Or tho [id number] 02/18/2029 [id number] / / [id number] [employer]/ Ortho [id number] R3 52mm 36mm Flexible Locking Tab Hip 0d Liner Acetabular Xlpe - [id number] Implanted:Qty: 1 on 04/04/2021 by Donta Salas MD at [facility] Right: Hip [employer]/Or tho 10/25/2030 [id number] / / [id number] [employer]/ Ortho [id number] Polarstem Collar Cementless Hip 1 Standard Stem Femoral Titanium - [id number] Implanted:Qty: 1 on 04/04/2021 by Donta Salas MD at [facility] Right: Hip [employer]/Or tho 10/06/2027 [id number] / / [id number] [employer]Rich[employer]/ Ortho [id number] 32mm Hip +8mm 07/25 Large Head Femoral Biolox Delta - [id number] Implanted:Qty: 1 on 04/04/2021 by Donta Salas MD at [facility] Right: Hip [employer]Rich[employer]/Or tho 01/24/2031 [id number] / / [id number] Insurance [facility] [place] CHO[place] Advance Directives For more information, please contact: [phone] Documents on File Type Date Recorded Patient Divine Healer Expl anation Power of Racquet Maker 04/10/2021 8:50 AM Power of Racquet Maker 04/04/2021 6:12 AM * Full Code (Latest Code Status on File) Date Activated Date Inactivated Comments 04/04/2021 4:57 PM 04/05/2021 5:28 PM Care Teams Cage Loader Relationship Specialty Start Date End Date Naveed Marion DO PCP - General Internal Medicine 02/06/21
[2025-01-01 12:20] VITALS: BP 133/85; PULSE 77; RESP 16; TEMP 36.5; O2SAT 100
[2025-01-01] MEDS: LACTATED RINGERS 1,000 ML 150 ML IV CONT (12:31)
--- NOTE | 2025-01-01 12:52 | WPDANESEPPF ---
Anes - Initial Pre Proc Eval Procedure: Operation Date: 01/01/25 14:30 Proposed Procedures p Colonoscopy - Mario Alcazar MD Date/Time: 01/01/25 12:52 Surgeon: Mario Alcazar MD Pre Op Diagnosis: Melena Patient Data Age: 64 Gender: F Height: 1.7 m Weight: 68.1 kg Last Vital Signs Temp 36.5 C 01/01/25 12:20 Pulse 77 01/01/25 12:20 Resp 16 01/01/25 12:20 BP 133/85 01/01/25 12:20 Pulse Ox 100 01/01/25 12:20 O2 Del Method Room Air 01/01/25 12:20 Allergies Allergy/AdvReac Type Severity Reaction Status Date / Time No Known Allergies Allergy Verified 01/01/25 12:17 Home Medications ?Medication ?Instructions ?Recorded ?Confirmed ?Type cetirizine 10 mg capsule (Zyrtec) 10 mg PO DAILY 07/22/19 01/01/25 History calcium 300 mg-D3 20 mcg-magnesium 1 tablet PO DAILY 03/14/21 01/01/25 History 25 mg-coppr 0.5 [id number] tablet (Caltrate-D3 Plus Minerals) multivitamin (Daily Multi-Vitamin 1 tablet PO DAILY 03/14/21 01/01/25 History tablet) cholecalciferol (vitamin D3) 25 25 mcg PO DAILY #30 tabs 08/15/21 01/01/25 Rx mcg (1,000 unit) tablet vitamin B complex-folic acid 1 1 tablet PO DAILY 08/29/22 01/01/25 History mg-vit C 100 mg-biotin 300 mcg tablet alprazolam 0.5 mg tablet (Xanax) 0.5 mg PO DAILY PRN anxiety #90 10/05/24 01/01/25 Rx tabs atorvastatin 40 mg tablet 40 mg PO DAILY #90 tabs 10/05/24 01/01/25 Rx bupropion HCl 300 mg 24 hr tablet, 300 mg PO QAM #90 tabs 10/05/24 01/01/25 Rx extended release levomefolate calcium 15 mg capsule 15 mg Capsule#3 Samples 10/05/24 12/25/24 Sample (Deplin FC) levothyroxine 88 mcg tablet 88 mcg PO DAILY #90 tabs 10/05/24 01/01/25 Rx (Levoxyl) Patient hx anesthesia problems: none Family hx anesthesia problems: none Results Review: All pre-operative results and documents have been reviewed as part of the pre-operative evaluation. [facility] Past Medical History Medical History Osteoarthritis Hypothyroidism, unspecified Surgical History Surgical History H/O: hysterectomy 12/2014 History of hip surgery Right 2020 Left 2015 Family History Family History Father Acute myocardial infarction, Onset Age: 71 Hypertension Family history of elevated blood lipids Mother Family history of obesity Hypertension Cerebrovascular accident Family history of diabetes mellitus in first degree relative Acute myocardial infarction, Onset Age: 60 Sibling Patient's sister is in good health Patient's brother is in good health Other Diabetes mellitus Family history of allergic disorder Family history of cardiovascular disease Family history of malignant neoplasm of male breast Social History Social History Smoking packs per day: 0.5 Smoking cigarettes per day: 10.0 Years smoked: 9 Smoking pack-years: 4.50 Smoking status: Former smoker Tobacco type: cigarettes Second hand tobacco smoke exposure: Yes Smoking end date: 08/12/89 Alcohol intake: current Drinks per week: 12 Substance use: never Substance use type: does not use Do You Feel Safe in your Home?: Yes Lack of Transportation: No Lack of Food: Never True Current Housing: I Have Housing Concerned About Future Housing: No Difficulty Paying Gas/Electric Bills: No Difficulty Paying for Meds: No Currently Unemployed: No Education: High School Diploma/GED Difficulty w/ Childcare or Family Care: No Living arrangements: with family Occupation/Education: retired Gender identity (if verbalized by the patient): Female Sexual Orientation (if Verbalized by the Patient): Straight or Heterosexual Spiritual care concerns: No Agree to blood products: Yes Anes - Eval Final PreProcedure Day of Procedure 01/01/25 12:52 Patient weight: normal Heart: regular rate and rhythm Lungs: clear to auscultation Airway: Mallampati scale class II Neurological: alert and oriented Last oral intake: >/= 8 hours ASA classification: III Emergent: no Anesthetic plan: proceed Anesthesia type and monitoring: general GIVS and standard monitoring Results Review: All pre-operative results and documents have been reviewed as part of the pre-operative evaluation. Informed Consent: The patient's anesthetic plan and its attendant risks and benefits were discussed with the patient/family/POA. Questions were solicited and answers provided to the satisfaction of the patient/family/POA.
--- NOTE | 2025-01-01 13:09 | PM.HPGS ---
History of Present Illness History of Present Illness Consent: Risks, benefits, and alternatives have been discussed and questions answered. Patient agrees to proceed with procedure. Chief complaint: Melena Narrative: Mylene Phillip is a 64 year old female here for colonoscopy, had episode of rectal bleeding, last colonoscopy 2015 Review of Systems Review of Systems: All systems reviewed & are unremarkable except as noted in HPI and below PMFSH Past Medical History Medical History Osteoarthritis Hypothyroidism, unspecified Surgical History Surgical History H/O: hysterectomy 12/2014 History of hip surgery Right 2020 Left 2015 Family History Family History Father Acute myocardial infarction, Onset Age: 71 Hypertension Family history of elevated blood lipids Mother Family history of obesity Hypertension Cerebrovascular accident Family history of diabetes mellitus in first degree relative Acute myocardial infarction, Onset Age: 60 Sibling Patient's sister is in good health Patient's brother is in good health Other Diabetes mellitus Family history of allergic disorder Family history of cardiovascular disease Family history of malignant neoplasm of male breast Social History Social History Smoking packs per day: 0.5 Smoking cigarettes per day: 10.0 Years smoked: 9 Smoking pack-years: 4.50 Smoking status: Former smoker Tobacco type: cigarettes Second hand tobacco smoke exposure: Yes Smoking end date: 08/12/89 Alcohol intake: current Drinks per week: 12 Substance use: never Substance use type: does not use Do You Feel Safe in your Home?: Yes Lack of Transportation: No Lack of Food: Never True Current Housing: I Have Housing Concerned About Future Housing: No Difficulty Paying Gas/Electric Bills: No Difficulty Paying for Meds: No Currently Unemployed: No Education: High School Diploma/GED Difficulty w/ Childcare or Family Care: No Living arrangements: with family Occupation/Education: retired Gender identity (if verbalized by the patient): Female Sexual Orientation (if Verbalized by the Patient): Straight or Heterosexual Spiritual care concerns: No Agree to blood products: Yes Meds Home Medications and Allergies Home Medications ?Medication ?Instructions ?Recorded ?Confirmed ?Type cetirizine 10 mg capsule (Zyrtec) 10 mg PO DAILY 07/22/19 01/01/25 History calcium 300 mg-D3 20 mcg-magnesium 1 tablet PO DAILY 03/14/21 01/01/25 History 25 mg-coppr 0.5 [id number] tablet (Caltrate-D3 Plus Minerals) multivitamin (Daily Multi-Vitamin 1 tablet PO DAILY 03/14/21 01/01/25 History tablet) cholecalciferol (vitamin D3) 25 25 mcg PO DAILY #30 tabs 08/15/21 01/01/25 Rx mcg (1,000 unit) tablet vitamin B complex-folic acid 1 1 tablet PO DAILY 08/29/22 01/01/25 History mg-vit C 100 mg-biotin 300 mcg tablet alprazolam 0.5 mg tablet (Xanax) 0.5 mg PO DAILY PRN anxiety #90 10/05/24 01/01/25 Rx tabs atorvastatin 40 mg tablet 40 mg PO DAILY #90 tabs 10/05/24 01/01/25 Rx bupropion HCl 300 mg 24 hr tablet, 300 mg PO QAM #90 tabs 10/05/24 01/01/25 Rx extended release levomefolate calcium 15 mg capsule 15 mg Capsule#3 Samples 10/05/24 12/25/24 Sample (Deplin FC) levothyroxine 88 mcg tablet 88 mcg PO DAILY #90 tabs 10/05/24 01/01/25 Rx (Levoxyl) Allergies Allergy/AdvReac Type Severity Reaction Status Date / Time No Known Allergies Allergy Verified 01/01/25 12:17 Vital Signs Vital Signs - 24 hr 01/01/25 12:20 Temperature 97.7 F Pulse Rate 77 Respiratory Rate 16 Blood Pressure 133/85 Pulse Oximetry 100 Oxygen Delivery Room Air Exam Const: General: comfortable and no acute distress HENMT: Face/Nose/Sinus: Normal nares present Eyes: General: appearance normal, both eyes and all related structures Neck: Neck: no JVD Resp: Auscultation: clear to auscultation bilaterally Cardio: Rate: regular rate Rhythm: regular rhythm GI: Inspection: non-distended GI Palp: Yes Soft to palpation Skin: General skin exam: normal color Neuro: General: gait normal Speech: normal speech Extrem: General: normal to inspection Psych: Mental Status: mental status grossly normal Assessment and Plan Assessment and plan (1) Hematochezia: Code(s): K92.1 - Melena Status: Acute Assessment and Plan: colonoscopy
[2025-01-01 13:22] VITALS: BP 102/83; PULSE 74; RESP 23; O2SAT 100
[2025-01-01 13:32] VITALS: BP 112/69; PULSE 71; RESP 15; O2SAT 100
[2025-01-01 13:42] VITALS: BP 137/91; PULSE 75; RESP 17; O2SAT 100
== END 2025-01-01 13:55 | disposition home or self-care (01) ==
PROVIDERS: PCP Nurse Practitioner Family; Referring Provider Nurse Practitioner; Visit Provider Internal Medicine Gastroenterology
PROC: 0DJD8ZZ Inspection of Lower Intestinal Tract, Via Natural or Artificial Opening Endoscopic (ICD-10-PCS; CPT 45378; principal; 2025-01-01 14:30)
DX: D12.2 Benign neoplasm of ascending colon (principal); K64.8 Other hemorrhoids; K57.30 Diverticulosis of large intestine without perforation or abscess without bleeding; E03.9 Hypothyroidism, unspecified; M19.90 Unspecified osteoarthritis, unspecified site; Z98.890 Other specified postprocedural states; Z87.891 Personal history of nicotine dependence; Z80.3 Family history of malignant neoplasm of breast; Z82.49 Family history of ischemic heart disease and other diseases of the circulatory system
CPT/HCPCS: 45385; 88305; J2704; J7120